=== PATIENT | male | born 1950 | race Caucasian/White ===

== ENCOUNTER 2020-01-10 09:30 | Outpatient (RCR) | payer BC, MEDICARE ==
[~2020-01-10] VITALS: Ht 172.7 cm; Wt 109.1 kg
[~2020-01-10 09:30] MED LIST: "\\\"WATER PILL\\\""; ATOR40TA70 PO; BENICAR; EMPA1TAB19 PO; HYDR-229 PO; LOSA1TAB23 PO; SITA1TBM7 PO; [UNRECOGNIZED DRUG - OTHER]
== END 2020-01-10 16:00 | disposition home or self-care (01) ==
LOC: PREOP 09:30
PROVIDERS: ATTEND Internal Medicine
DX: Z01.818 Encounter for other preprocedural examination (principal); Z11.59 Encounter for screening for other viral diseases
CPT/HCPCS: 87635

== ENCOUNTER 2021-07-21 10:37 | Outpatient (CLI) | payer MEDICARE, OTHER ==
[~2021-07-21] VITALS: Ht 172.7 cm; Wt 104.3 kg
[2021-07-21 10:27] VITALS: BP 105/65
[2021-07-21] MEDS ORDERED: ACETAMINOPHEN 500 MG TAB (TYLENOL) PO PRN (11:15)
[2021-07-21] MEDS ORDERED: diphenhydrAMINE 50 MG/ML INJ (BENADRYL) IV PRN (11:15)
[2021-07-21] MEDS ORDERED: ONDANSETRON 4 MG/2 ML (SDV) Z0FRAN IV PRN (11:15)
[2021-07-21] MEDS ORDERED: EPINEPHrine INJECTION 1 MG/ML AMP IM PRN (11:15)
[2021-07-21] MEDS ORDERED: CASIRIVIMAB/IMDEVIMAB 1,200 MG in NS (IVPB) 250 ML IV ONE (11:15)
[2021-07-21 12:29] VITALS: BP 111/66
== END 2021-07-21 13:15 | disposition home or self-care (01) ==
LOC: INFUSION 10:37
PROVIDERS: ATTEND Nurse Practitioner Family
DX: U07.1 COVID-19 (principal)